=== PATIENT | male | born 1950 | race Caucasian/White ===

== ENCOUNTER → 2022-01-28 17:40 | Outpatient (CLI) | payer MEDICARE, SELFPAY ==
--- NOTE | 2022-01-28 17:45 | DI.MRI.S_ITS ---
PROCEDURE: MR PELIS WO/W CON INDICATIONS: Elevated PSA/BPH with LUTS TECHNIQUE: Coronal HASTE, axial T1 FSE with fat saturation, 3-plane nonbreath-hold T2 FSE. After the administration of contrast, dynamic axial, delayed axial and coronal VIBE or 2-D FLASH with fat saturation through the pelvis. Optional diffusion weighted imaging and ADC may be performed. COMPARISON: None. FINDINGS: Image quality: Diffusion weighted and dynamic contrast enhanced images are diagnostic. Prostate: Gland size is 5.4 x 3.4 x 3.5 cm; ellipsoid gland volume is 33 mL. Mild benign prostatic hyperplasia within central gland. Prostate capsule is intact. Neurovascular bundles and seminal vesicles are free of tumor. Lesion size(s): Lesion 1: 1.3 x 1.0 cm in axial plane. Lesion 2: 0.6 x 0.4 cm in axial plane. Lesion location(s) (sector): Lesion 1: Left apex posterior medial peripheral zone Lesion 2: Left mid-prostate posterior lateral peripheral zone Lesion description: Lesion 1: Oval mild to moderate [id number] with partially circumscribed and indistinct margins. Prostate capsule is intact. Lesion 2: Round moderately T2 W-hypointense with indistinct margins T2 weighted imaging (T2WI) morphology score: Lesion 1: 4 Lesion 2: 3 Diffusion weighted imaging (DWI) morphology score: Lesion 1: Likely category 3-4, although susceptibility artifact related to air in the rectum makes diffusion-weighted imaging unreliable. BI-RADS designation will be based on T2-weighted imaging score. Lesion 2: Obscured by artifact Dynamic contrast enhancement (DCE): Lesion 1: present Lesion 2: present Lesion PI-RADS score: Lesion 1: PI-RADS 4 Lesion 2: PI-RADS 4 Genitourinary system: Bladder wall thickness is normal. Distal ureters are non distended. Bowel and peritoneum: No pathologic free pelvic fluid. Inferior colon and small bowel loops are normal in caliber. Nodes and vessels: No pelvic or inguinal adenopathy by size criteria. Iliac vessels are normal in caliber. Soft tissues: No inguinal hernias. Diffusely hypointense appearance of the left testicle on coronal T1 post-contrast images may be secondary to a testicular prosthesis. Bones: Marrow demonstrates normal overall signal, without lesions to suggest metastases. Mild bilateral proximal hamstring tendinosis. Degenerative changes are seen in the included lumbar spine. IMPRESSION: 1. Small PI-RADS 4 lesions are seen in the left apex posteromedial peripheral zone measuring 1.3 cm and in the left mid prostate posterolateral peripheral zone measuring 0.6 cm. Of note, diffusion-weighted images are obscured by artifact related to adjacent bowel gas, and assessment is based on the T2-weighted imaging appearance and dynamic contrast enhancement. 2. Mild benign prostatic hyperplasia. Dictated by: Agustin Kc M.D. on 01/29/2022 at 12:10 Approved by: Agustin Kc M.D. on 01/29/2022 at 13:01
== END ==
PROVIDERS: Referring Provider Specialist; Visit Provider Specialist
DX: N40.0 Benign prostatic hyperplasia without lower urinary tract symptoms (principal); R97.20 Elevated prostate specific antigen [PSA]
CPT/HCPCS: 72197; A9579

== ENCOUNTER → 2022-04-23 09:38 | Outpatient (CLI) | payer MEDICARE, SELFPAY ==
[2022-04-23 10:09] LABS: COVID19 -Nasal RAPID Negative (Negative)
== END ==
PROVIDERS: PCP Family Medicine; Visit Provider Urology
DX: Z20.822 Contact with and (suspected) exposure to COVID-19 (principal)
CPT/HCPCS: 87635

== ENCOUNTER 2022-04-26 06:29 | Inpatient (IN) | payer MEDICARE, SELFPAY ==
[2022-04-26] VITALS (14 sets, daily range): BP systolic 98–118; BP diastolic 61–73; PULSE 56–88; RESP 16–22; TEMP 35.8–37; O2SAT 94–99; BMI 26.6
--- NOTE | 2022-04-26 | PATH_ITS ---
[facility] Accession Number: [id number] . 01 Material submitted: . PART A: lymph node - RIGHT PELVIC LYMPH NODE PART B: lymph node - LEFT PELVIC LYMPH NODE PART C: prostate - PROSTATE . 01 Diagnosis: A. Lymph Nodes, Right Pelvix, Resection: Two lymph nodes negative for malignancy (0/2). . B. Lymph Nodes, Left Pelvic, Resection: Two lymph nodes negative for malignancy (0/2). . C. Prostate Gland, Radical Prostatectomy: Invasive adenocarcinoma, acinar type. - Histologic type: Acinar adenocarcinoma. - Histologic grade: Grade group 3 (Carla score of 4+3=7); percentage of pattern 4 is approximately 70%. - Intraductal carcinoma: Not identified. - Cribriform glands: Present. - Treatment effect: No known presurgical therapy. - Tumor quantitation: Estimated 10% of prostate involved by tumor. - Greatest dimension of dominant tumor nodule: 16 mm (posterior lobe). - Extraprostatic extension: Not identified. - Urinary bladder neck invasion: Not identified. - Seminal vesicle invasion: Not identified. - Lymphovascular invasion: Not identified. - Perineural invasion: Present. - Margin status: All margins negative for invasive carcinoma. - Pathologic stage (pTNM, AJCC 8th Edition): pT2 pN0. - Additional findings: High-grade prostatic intraepithelial neoplasia. [facility] 04/29/2022 1515 Local . 01 Electronically signed: . Steph Casiano MD, Pathologist NPI- [id number] . 01 Gross description: . A. Received in formalin, labeled with the patient's name and right pelvic lymph node, and consists of two yellow, lobular adipose tissue measuring 3.4 x 2.8 x 1.0 cm. Palpation reveals two stack lymph node candidates ranging from 2.9 cm to 1.0 cm in greatest dimension. Sections are submitted as follows: A1: Single intact lymph node candidate. A2: Single intact lymph node candidate. B. Received in formalin, labeled with the patient's name and left pelvic lymph node, and consists of a fragment of yellow, lobulated soft tissue measuring 5.6 x 2.0 x 0.7 cm. Palpation reveals two stack lymph node candidates ranging from 1.2 cm to 2.5 cm in greatest dimension. Sections are submitted as follows: B1: Single intact lymph node candidate intact. B2: Single intact lymph node candidate. C. Received in formalin, labeled with the patient's name and prostate, and consists of a 45 g intact prostate with bilateral seminal vesicles and vasa deferentia measuring 5.8 cm SI, 4.5 cm ML, 4.0 cm AP. The specimen is inked as follows: Right anterior blue, left anterior green, posterior black. The specimen is serially sectioned from apex to base into seven slices to reveal a pale, firm, ill defined area located santos-centrally measuring 2.0 x 2.0 x 1.7 cm. The specimen is submitted as follows: C1: Perpendicular right apex. C2: Perpendicular left apex. C3-C4: Right base margin. C5: Left base margin. C6: Right vas deferens and seminal vesicle. C7: Left vas deferens and seminal vesicle. C8-C9: Slice 2, composite. C10-C13: Slice 3, composite. C14-C17: Slice 4, composite. C18-C21: Slice 5, composite. C22-C25: Slice 6, composite. ([id number]) /[facility] 04/27/2022 [facility] Local . 01 Pathologist provided ICD-10: C61 . 01 CPT . 298639, [id number], [id number] Specimen Comment: A courtesy copy of this report has been sent to [phone] Performed at: 01 [facility] [address] [place] [address], [place], [place] [id number] MD Antonio Beebe MD Phone: [phone]
[2022-04-26] MEDS: ACETAMINOPHEN IV 1,000 MG/100 ML VIAL 400 MG IV (07:18)
[2022-04-26] MEDS: LACTATED RINGERS 1,000 ML 42 ML IV ×3 (07:19→11:01)
--- NOTE | 2022-04-26 07:32 | PM.PREOP ---
Pre-operative Note COVID-19 Criteria for continued procedure: Expected advancement of disease process, Possibility delay results in more complex future surgery or treatment, Deterioration of the patient's condition or overall health, Delay expected to result in less-positive ultimate med/surg outcome and Non-surgical alternatives not available or appropriate per current SOC Interval Note History & Physical reviewed/Exam performed by Physician: Yes Changes to H&P: No
--- NOTE | 2022-04-26 07:51 | PM.PREOP ---
Pre-operative Note COVID-19 Criteria for continued procedure: Expected advancement of disease process, Possibility delay results in more complex future surgery or treatment, Delay expected to result in less-positive ultimate med/surg outcome and Non-surgical alternatives not available or appropriate per current SOC Interval Note History & Physical reviewed/Exam performed by Physician: Yes Changes to H&P: Yes H&P completed within 30 days and has changed as indicated here:: In the interval the patient has elected to proceed with radical retropubic prostatectomy and bilateral pelvic lymphadenectomy.
[2022-04-26] MEDS: CIPROFLOXACIN 400 MG/200 ML PIGGYBACK 200 MG IV (09:27)
--- NOTE | 2022-04-26 10:05 | SUR.OPER ---
Supine on padded OR bed, head on pillow, arms secured on padded arm boards at <90 degrees abduction, folded gel pads placed under bilateral wrists/lower forearm to support wrist/hands, legs uncrossed, safety belt at thigh, tape over blanket over lower legs. Gel pad under bilateral heels. Break of table at iliac crest for intra-op positioning.
[2022-04-26 10:22] LABS: Appearance Urine UA CLEAR; Bilirubin Urine UA NEGATIVE (NEGATIVE); Color Urine UA YELLOW; Glucose Urine UA NEGATIVE (Negative); Ketones Urine UA NEGATIVE (NEGATIVE); Leukocyte Esterase Urine UA NEGATIVE (NEGATIVE); Nitrite Urine UA NEGATIVE (Negative); Occult Blood Urine UA NEGATIVE (Negative); Protein Urine UA NEGATIVE (Negative); Specific Gravity Urine UA 1.025 (1.000-1.035); Urobilinogen Urine UA 0.2 E.U./dL (0.2); pH Urine UA 6.5 (4.5-8.0)
[2022-04-26 10:28] LABS: Bacteria Urine None Seen; Culture Indicated Urine Cult Not Indicated; RBC Urine 0-1/HPF (0-5/HPF); Squamous Epithelial Cell Urine None Seen (0-5/HPF); WBC Urine 0-1/HPF (0-5/HPF)
[2022-04-26] MEDS: BUPIVACAINE LIPOSOME 266 MG/20 ML VIAL INJ (11:37)
--- NOTE | 2022-04-26 12:15 | P.OP_ITS ---
Operative Date/Time/Diagnoses Date of procedure: 04/26/22 Time of procedure: 11:50 Pre-op diagnosis: Prostate cancer Post-op diagnosis: same Procedure & Clinicians Procedure: 1. Radical retropubic prostatectomy and bilateral pelvic lymphadenectomy. Same procedure as scheduled: Yes Indications: 1. Prostate cancer. 2. Family history of prostate cancer. Surgeon: Guy Hernandez Starcher And Tenter Range Feeder: Winter Flowers Click Yes if Unassisted: No Anesthesia Type: General, Spinal (Duramorph) and Local (1.33% Exparel) Operative Notes Findings: 1. Normal midline lower abdominal wall tissue planes. Periprostatic and perirectal tissues are unremarkable. Renate packets were unremarkable bilaterally. Closure Type: primary Specimen(s): other (1. Prostate with attached seminal vesicles. 2. Pelvic lymph nodes.) Applied: catheter ([address] Bueno catheter) and drain(s) (15 Qatari William drain.) Estimated Blood Loss (mL): 200 Blood products transfused: none Procedure in detail: The patient was positioned supine was administered general anesthesia following successful placement of Duramorph spinal anesthetic. The abdomen, genitalia, and groin were then prepped and draped in sterile fashion. A 20 Qatari Bueno catheter was inserted, the balloon inflated 20 cc, is placed to gravity drainage. A midline infraumbilical incision was then made just above the pubic symphysis. Division of the subcutaneous, muscular, fascial layers was undertaken using combination of blunt, sharp, and cautery technique. The pelvic retroperitoneum was then entered. The anterior and lateral pelvic sidewalls were then carefully exposed using blunt technique. Bilateral pelvic lymphadenectomy was then conducted on both sides using the same steps and maneuvers as follows: The thin and tissue overlying the external iliac vein was divided along its length using blunt and cautery technique. External iliac vein was then carefully isolated from the renate packet was reflected superiorly and laterally. The obturator nerve was observed and preserved in both cases. Using blunt and cautery technique each the right, and the left, renate packets were carefully dissected from the lateral pelvic sidewall external and pain and the obturator nerve and vessels. Each was labeled as to the site of their procurement submitted to pathology for routine gross and microscopic examination. The endopelvic fascia on either side the prostate was then carefully divided and fibers of the external sphincter complex were carefully deflected inferiorly and posteriorly. The puboprostatic ligaments were identified bilaterally. They were then divided using the power seal. The dorsal venous complex was then carefully isolated and also divided using the power seal. The anterior and lateral aspects of the urethra distal to the prostatic apex were then carefully identified and isolated with meticulous blunt technique. The prostatic fascia was divided longitudinally bilaterally from base to apex. Gentle pressure with a sponge stick was utilized to mobilize the divided fascia posteriorly toward the rectum and vascular pedicle. Next, the exposure urethra was further isolated and elevated off the rectal wall it was then divided sharply distal to the prostatic apex. The Bueno catheter was then brought into the operative field in usual fashion. Gentle retraction allowed division of the rectal urethralis musculature. A plane was then gently developed between the anterior rectal wall and posterior prostatic fascia. The posterior lateral pedicles of were then carefully isolated and divided using the power seal. Now with the prostate apex and posterior aspect Bueno elevated retracted superiorly the appropriate plane was developed at the base of each seminal vesicle. Each seminal vesicle was then meticulously dissected from its fossa using blunt and cautery technique with the power seal. The and bill of the vas were then identified bilaterally and isolated using blunt technique. Large plastic heme lock clamps were then applied proximally and distally and the structures were divided sharply. Now the smooth muscle of the interface of bladder neck and prostate base were carefully isolated and divided using blunt and cautery technique. The bladder neck was then incised sharply circumferentially and the prostate with attached seminal vesicles was then submitted to pathology for routine gross and microscopic examination. A julien bladder neck was then created using interrupted and imbricated 4-0 Monocryl circumferentially. Now the Fallon sound was passed the penile urethra and the tip was expose at the urethral stump. Interrupted 2-0 Monocryl suture were then placed at the 2, 4, 6, 8, and 10 o'clock positions from out side to inside. The same sutures were then brought through their corresponding positions in the neobladder neck under direct visualization. An 18 Qatari silicone catheter was then requested in this was then passed of lower urinary track and then was advanced under direct visualization with the tip within the bladder proper. The balloon was then inflated to 15 cc. Gentle traction was then applied to the catheter thus putting the urethral stump in neobladder neck in a juxtaposed position. Each suture was then tied down individually, thus completing the vesicle urethral anastomosis. The catheter was irrigated clear placed to gravity drainage. A 15 Qatari William drain was then positioned in the space of Retzius and brought out through a separate stab wound to the right of the midline incision. The drain was secured in place with 2-0 silk using a Selvin sandal technique. The midline fascia was closed with 0 PDS beginning at each the inferior, and the superior apex, then running each to 1 another at approximately the midpoint where they were tied to 1 another. This subcutaneous layer was then reapproximated running 2-0 Vicryl. The skin was reapproximated with a running subcuticular 4-0 Monocryl. Telfa was then tailored to fit just over the incision line and the drain site. Transparent Op site was then applied over both of these for a bio occlusive final dressing. The William drain was connected to bulb self suction. The patient was then awakened, transferred to [facility], and transported recovery room in stable condition. Complications: none Post-operative Condition: stable Disposition: Acute Care Plan for aftercare: Admit to acute care
[2022-04-26] MEDS: OXYCODONE IR 5 MG TABLET PO (12:42)
--- NOTE | 2022-04-26 12:50 | SUR.PHASEI ---
Pt A&Ox4, reports pain as tolerable, dressing C/D/I, VSS, and ready to transfer to room. Report given to receiving RN using SBAR with time allowed for questions. Pt transferred to room 216 with all personal belongings.
[2022-04-26] MEDS: LACTATED RINGERS 1,000 ML 125 ML IV ×2 (13:49→21:17)
[2022-04-26] MEDS: PANTOPRAZOLE DR 40 MG TABLET PO (15:14)
[2022-04-26] MEDS: METOCLOPRAMIDE 10 MG/2 ML INJ IV (15:15)
[2022-04-27 03:29] VITALS: BP 104/65; PULSE 78; RESP 16; TEMP 37
[2022-04-27] MEDS: LACTATED RINGERS 1,000 ML 125 ML IV (04:38)
--- NOTE | 2022-04-27 07:38 | PM.PN.1 ---
Subjective Subjective Date Patient Seen: 04/27/22 Time Patient Seen: 07:10 Interval history: Patient is postoperative day 1 status post radical retropubic prostatectomy and bilateral pelvic lymphadenectomy. He denies pain, nausea, or vomiting. He is passing gas and tolerating p.o. fluids. Exam Vital Signs (past 8 hours): - 04/26/22 23:51 04/27/22 03:29 Temperature 98.0 F 98.6 F Pulse Rate 69 78 Respiratory Rate 18 16 Blood Pressure 112/73 104/65 Pulse Oximetry 99 Oxygen Flow Rate 0 97 Oxygen Delivery Method Room Air Oxygen Flow Rate 97 Narrative Exam Narrative: He is sitting upright in bedside chair and in no distress. Chest-equal and unlabored expansion bilaterally. Heart-normal sinus rhythm. Abdomen-nondistended. Bowel tones are normal. Dressing and DOMINIK drain are intact. Genitalia-indwelling Bueno with nearly clear outflow the. Minimally pink tinged without clots. Objective Labs Labs: Laboratory Results - last 24 hr 04/26/22 09:43 Urine Color Yellow Urine Appearance Clear Urine pH 6.5 Ur Specific [place] 1.025 Urine Protein Negative Urine Glucose (UA) Negative Urine Ketones Negative Urine Occult Blood Negative Urine Nitrate Negative Urine Bilirubin Negative Urine Urobilinogen 0.2 Ur Leukocyte Esterase Negative Urine RBC 0-1/hpf Urine WBC 0-1/hpf Ur Squamous Epith Cells None seen Urine Bacteria None seen Ur Culture Indicated? Cult not indicated PFSH Medical History BPH loc w/o ur obs/LUTS Elevated PSA Elevated PSA Family history of prostate cancer in father Family history of prostate cancer in father Prostate cancer Surgical History History of back surgery Vasectomy status Social History household members: spouse Smoking Status: Never smoker alcohol intake: current Assessment & Plan Assessment & Plan narrative: Assessment: 1. Stable postoperative day 1 status post radical retropubic prostatectomy and bilateral pelvic lymphadenectomy. 2. Pathology pending. Plan: 1. Increase diet and activity. 2. Follow-up on pathology when final. Time Spent With Patient Critical Care time: I spent a total of [] minutes of critical care time on this patient's care today; this time is exclusive of procedural time. Quality VTE Deep Vein Thrombosis/Pulmonary Embolism Present on Admission: No
[2022-04-27 07:56] VITALS: BP 104/61; PULSE 60; RESP 17; TEMP 36.3; O2SAT 98
[2022-04-27] MEDS: CHOLECALCIFEROL (VITAMIN D3) 1,000 UNIT TABLET 1000 UNIT PO (09:18)
[2022-04-27] MEDS: ENOXAPARIN 40 MG/0.4 ML SYRINGE SUBCUT (09:18)
[2022-04-27] MEDS: ACETAMINOPHEN 325 MG TABLET 650 MG PO ×2 (09:18→21:30)
[2022-04-27 11:00] VITALS: BP 122/53; PULSE 66; RESP 17; TEMP 36.3; O2SAT 98
[2022-04-27 15:00] VITALS: BP 131/82; PULSE 66; RESP 17; TEMP 36.2; O2SAT 100
--- NOTE | 2022-04-27 15:41 | CM.DANOTE ---
DCP/Assessment: Reviewed chart. Patient is a 71yr old male admitted to [facility] for elective urology procedure with Dr. Hernandez. PCP is Crow Shankar. Primary payor is 1)[employer]. Met with patient this afternoon explained CM/SW role. Patient reports that he hopes to d/c home tomorrow 8-10. Patient is completely I in all ADL's and does not anticipate any d/c planning needs. Notified patient that CM team would continue to follow if needs were to arise. P: Home with spouse when medically stable. [facility] Discharge Planning/Care Management CM Discharge Assessment Start: 04/27/22 15:39 Freq: Status: Active Protocol: Document 04/27/22 15:39 KJS (Rec: 04/27/22 15:41 KJS [id number]) Discharge Planning Assessment Assigned Gluer Machine Operator JOSE Sue Contact Information Zaida Nate (spouse) ph# [phone] Advance Directives? No History Provided By Patient,Medical Record Prior Living Arrangements House Household Members spouse Type of transporation used prior to Drives own vehicle admit Independent with ADL's Yes Is patient alert and oriented? Yes Caregiver for Another No Barriers to Discharge No Discharge Plan Home Transportation Arrangement Family to provide transport. Referrals Initiated Other Additional Comment No d/c needs identified at time of visit. Whiteboard Updated in Patient Room with Yes name and ext. # of Gluer Machine Operator Review Status In Process Next Review Type Continued Stay Review Discharge Planning/Care Management CM Discharge Assessment Start: 04/27/22 15:39 Freq: Status: Active Protocol: Document 04/27/22 15:39 KJS (Rec: 04/27/22 15:41 KJS [id number]) Discharge Planning Assessment Assigned Gluer Machine Operator JOSE Sue Contact Information Zaida Sullivan (spouse) ph# [phone] Advance Directives? No History Provided By Patient,Medical Record Prior Living Arrangements House Household Members spouse Type of transporation used prior to Drives own vehicle admit Independent with ADL's Yes Is patient alert and oriented? Yes Caregiver for Another No Barriers to Discharge No Discharge Plan Home Transportation Arrangement Family to provide transport. Referrals Initiated Other Additional Comment No d/c needs identified at time of visit. Whiteboard Updated in Patient Room with Yes name and ext. # of Gluer Machine Operator Review Status In Process Next Review Type Continued Stay Review
[2022-04-27] MEDS: SODIUM CHLORIDE 0.9% FLUSH 10 ML IV (20:07)
[2022-04-27 20:12] VITALS: BP 118/75; PULSE 68; RESP 20; TEMP 37.3; O2SAT 97
--- NOTE | 2022-04-27 22:37 | PC.NURSE ---
Patient is alert and oriented. Breath sounds CTA with RA sat of 97%. HRR. Denies nausea. BT present and is passing flatus. Tender to incisional area. Indwelling catheter is patent; urine is clear, ranjith. Plan is to DC with catheter. Is able to turn himself in bed. Reportedly out of bed with SBA and walker. Does report some weakness in left LE. Abdominal dressing is CDI. DOMINIK intact and compressed with serosanguinous drainage. Refusing SCD's so reminded to ankle wave. Complained of 4/10 abdominal pain earlier and was medicated with Tylenol and pain down to 2/10 on reassessment. Fall risk score is moderate and bed alarm is activated.
[2022-04-28] VITALS: BP 139/79; PULSE 66; RESP 18; TEMP 36.2; O2SAT 95
[2022-04-28 07:50] VITALS: BP 140/78; PULSE 57; RESP 16; TEMP 36.4; O2SAT 97
[2022-04-28] MEDS: CHOLECALCIFEROL (VITAMIN D3) 1,000 UNIT TABLET 1000 UNIT PO (08:13)
[2022-04-28] MEDS: ACETAMINOPHEN 325 MG TABLET 650 MG PO (08:13)
[2022-04-28] MEDS: SODIUM CHLORIDE 0.9% FLUSH 10 ML IV (08:14)
[2022-04-28] MEDS: ENOXAPARIN 40 MG/0.4 ML SYRINGE SUBCUT (08:14)
--- NOTE | 2022-04-28 13:47 | PM.DS.1 ---
History of Present Illness History of Present Illness Date Patient Seen: 04/28/22 Time Patient Seen: 11:45 Date of Onset of Symptoms: 03/02/22 Chief complaint: INPT Narrative: Dixon is a 71-year-old male admitted on 04/26/2022 with diagnosis of GROUP 3, pT1c adenocarcinoma the prostate and positive family history for prostate cancer. He underwent uncomplicated radical retropubic prostatectomy and bilateral pelvic lymphadenectomy under general and Duramorph spinal the same day. Postoperative clinical course was unremarkable. He has no new complaints or concerns today. He is tolerating a general diet. He has evidenced return of bowel function activity. Ambulating without assistance. Pain is easily controlled with Tylenol. Discharge Providers Provider Date of admission: 04/26/22 06:29 Discharge Date: 04/28/22 Primary care physician: Crow Shankar MD Discharge provider: Guy Hernandez MD Summary Hospital Course Discharge Diagnosis: 1. Adenocarcinoma the prostate. 2. Family history of prostate cancer. Hospital Course: The patient was admitted on the morning of 04/26/2022 and underwent uncomplicated radical retropubic prostatectomy and bilateral pelvic lymphadenectomy under general and Duramorph spinal anesthesia. His postoperative clinical course was entirely unremarkable in that he tolerated general diet, was able to transfer and ambulate independently, and had return of bowel function by the 1st postoperative morning. On the morning of 04/28/2022 the patient is stable for discharge. Pathology is pending at discharge. Status at Discharge Cognitive/behavioral status at discharge: oriented Functional status at discharge: independent ambulation Overall status at discharge: patient is back to baseline Exam Vital Signs (past 8 hours): - 04/28/22 07:50 Temperature 97.6 F Pulse Rate 57 L Respiratory Rate 16 Blood Pressure 140/78 Pulse Oximetry 97 Oxygen Flow Rate 0 Oxygen Delivery Method Room Air Oxygen Flow Rate 0 Narrative Exam Narrative: He is sitting upright and resting comfortably in bed and in no distress. Head/neck-sclera clear pupils are round equal bilaterally. No JVD. Chest-equal nonlabored expansion bilaterally. Heart-normal sinus rhythm. Abdomen-incision intact drain site is clear. Genitalia-indwelling Bueno catheter with very light pink tinged outflow and without clot. Extremities-no edema, pallor, or cyanosis. [facility] Medical History BPH loc w/o ur obs/LUTS Elevated PSA Elevated PSA Family history of prostate cancer in father Family history of prostate cancer in father Prostate cancer Surgical History History of back surgery Vasectomy status Social History household members: spouse Smoking Status: Never smoker alcohol intake: current Discharge Assessment & Plan Assessment and Plan Assessment: 1. Stable post operative day 2 status post radical retropubic prostatectomy and bilateral pelvic lymphadenectomy. 2. Pathology pending. Plan of Treatment: 1. Discharge home today with indwelling Bueno catheter to gravity drainage. 2. Catheter care and use training per nursing as ordered. 3. Follow-up on pathology as outpatient when finalized. Discharge Plan Discharge Plan Patient Disposition: Home Provider Discharge Comment: Please contact the urology clinic to schedule postop follow-up. Discharge orders & Medications Prescriptions: New enoxaparin [Lovenox] 40 mg/0.4 mL Syringe 40 mg SUBCUT DAILY Qty: 30 0RF oxycodone 5 mg Tablet 5 mg PO Q4H PRN (Reason: Pain, Moderate (4-6)) Qty: 15 0RF ciprofloxacin HCl 250 mg tablet 250 mg PO Q12H Qty: 6 0RF Rx Instructions: Begin the morning of 05/09/2022 as directed. Continued cholecalciferol (vitamin D3) 10 mcg (400 unit) capsule 25 mcg PO DAILY esomeprazole magnesium 40 mg capsule,delayed release(DR/EC) 500 mg PO DAILY PRN (Reason: Heartburn) omega-3 fatty acids [Fish Oil Concentrate] 1,000 mg capsule 2,800 mg PO DAILY vitamin B complex [B Complex-Vitamin B12] Tablet 1 tab PO DAILY Follow up/Referrals: Crow Shankar MD [Primary Care Provider] - Diet/Activity/Treatments Diet: Diet as Tolerated Activity: No driving x2 weeks. No lifting greater than 15 lb x 4 weeks. Catheter: 2-way Bueno Skin/Wound/Dressing Care Skin care: May shower daily. No bathing, swimming, or hot tub x2 weeks. Report to your healthcare provider any signs of infection, such as:: chills, fever, night sweats, increased pain, unusual drainage and unusual redness Other wound treatment: Leave incision open to air. Blot dry with clean Tylenol after showering. Visit Report/Discharge Packet Instructions: DI for Heart Failure, DI for Prescription Opioid Use Stand Alone Forms: Surgery Discharge Discharge Data Primary Care Provider: Crow Shankar VTE Deep Vein Thrombosis/Pulmonary Embolism Present on Admission: No
== END 2022-04-28 14:51 | disposition home or self-care (01) | DRG 708 ==
PROVIDERS: Admitting Provider Specialist; PCP Family Medicine; Referring Provider Specialist; Visit Provider Specialist
PROC: 0VT00ZZ Resection of Prostate, Open Approach (ICD-10-PCS; principal; 2022-04-26 07:45)
DX: C61 Malignant neoplasm of prostate (principal); N40.0 Benign prostatic hyperplasia without lower urinary tract symptoms; Z80.42 Family history of malignant neoplasm of prostate; Z20.822 Contact with and (suspected) exposure to COVID-19
CPT/HCPCS: 55845; 81001; 82962; 87635; C9803; C9290; J0131; J0744; J1650; J2250; J2274; J2704; J2765; J3010

== ENCOUNTER 2022-06-01 11:15 | Outpatient (RCR) | payer MEDICARE, SELFPAY ==
--- NOTE | 2022-04-15 21:30 | PT.OIE ---
Current Diagnoses Malignant neoplasm of prostate (04/15/22) Benign prostatic hyperplasia without lower urinary tract symptoms (04/15/22) Elevated prostate specific antigen [PSA] (04/15/22) Past Medical History (Last Updated 03/30/22 @ 17:20 by Guy Hernandez MD) BPH loc w/o ur obs/LUTS Elevated PSA Elevated PSA Family history of prostate cancer in father Family history of prostate cancer in father Prostate cancer Past Surgical History (Last Reviewed 03/30/22 @ 17:19 by Guy Hernandez MD) History of back surgery Vasectomy status Visit Care Team Role Provider Type Crow Shankar MD Primary Care Provider Non-Staff Specialty: Family Practice Address: [address] [place] [address], [id number] Email: Family Provider Specialty: Address: Phone: Fax: Email: Guy Hernandez MD Attending Provider Physician Referring Provider Specialty: Urology Address: [address] [place] [address], [id number] Email: Physical Therapy Initial Evaluation PT-OP-A Visit Information Start: 04/14/22 10:44 Freq: Status: Active Protocol: Document 04/15/22 07:27 AMB (Rec: 04/15/22 07:58 AMB [id number]) Out-Patient Physical Therapy Visit Information Visit Information Visit Type Initial Evaluation Visit Start Time 07:30 Visit Stop Time 08:15 Total Visit Minutes 45 Visit Number 1 PT-OP-B Current Condition Start: 04/14/22 10:44 Freq: Status: Active Protocol: Document 04/15/22 07:27 AMB (Rec: 04/15/22 07:58 AMB [id number]) Current Condition History of Current Condition Onset Date 04/26/22 Current Complaints upcoming prostate surgery History of Current Condition Having surgery 04/26/22. PT-OP-C Subjective Start: 04/14/22 10:44 Freq: Status: Active Protocol: Document 04/15/22 07:30 AMB (Rec: 04/15/22 12:46 AMB [id number]) Patient Questionnaires Pelvic Pain and Urgency/Frequency Patient Symptom Scale Pelvic Pain Score 1 OP-PT Pain Assessment Comments Pain Comments low back pain history PT-OP-I Pelvic Floor Start: 04/14/22 10:44 Freq: Status: Active Protocol: Document 04/15/22 07:59 AMB (Rec: 04/15/22 08:14 AMB [id number]) Pelvic Floor Assessment SEMG (uV) Baseline 1.5 Quick Contraction 49.7 10 Second Contraction 26.7 Recruitment Pattern Good Relaxation Good Holding Fair Stability of Hold Fair SEMG Stability of Rest Good PT-OP-T Assessment and Plan Start: 04/14/22 10:44 Freq: Status: Active Protocol: Document 04/15/22 07:30 AMB (Rec: 04/15/22 13:01 AMB [id number]) Physical Therapy Assessment Rehab Potential Rehabilitation Potential Good Evaluation Complexity Number of Personal Factors/Comorbidities 1-2 Number of Body Systems Impaired 1-2 Impairments Impairments Strength Goals Strength Short Term Goal (STG) Dixon will contract his pelvic floor muscles for 10 seconds in standing. STG Duration 5 weeks Loan Services Professional Goal (LTG) Dixon will be independent with a HEP to strengthen his pelvic floor. LTG Duration 10 weeks Continence Short Term Goal (STG) Dixon will move from sit to stand without leaking urine. STG Duration 5 weeks [facility] Goal (LTG) Dixon will walk through the grocery store without leaking urine. LTG Duration 10 weeks Assessment Summary Assessment Dixon presents to PT with upcoming prostate surgery scheduled. He is not currently having any urinary symptoms, and denies any and all incontinence. He was instructed in pelvic floor strengthening, and did show good engagement of pelvic floor muscles with sEMG biofeedback. He will be re- evaluated after his upcoming surgery. Did discuss RAMOS after surgery and the importance of strengthening now before surgery. Physical Therapy Plan Frequency and Duration Frequency of Treatment 1x/Week Duration of Treatment 12 weeks Plan of Care Start Date 04/15/22 Plan of Care End Date 07/08/22 Therapeutic Interventions Therapeutic Interventions Home Exercise Program,Manual Therapy,Neuromuscular Re- education,Therapeutic Activities,Therapeutic Exercises Modalities Biofeedback Next Visit Focus/Plan Next Note Type Re-Evaluation
--- NOTE | 2022-04-15 21:31 | PT.OPPOC ---
Physical, Occupational & Speech Therapy At [facility] Current Diagnoses Malignant neoplasm of prostate (04/15/22) Benign prostatic hyperplasia without lower urinary tract symptoms (04/15/22) Elevated prostate specific antigen [PSA] (04/15/22) Visit Care Team Role Provider Type Crow Shankar MD Primary Care Provider Non-Staff Specialty: Family Practice Address: [address] [place] [address], [id number] Email: Family Provider Specialty: Address: Phone: Fax: Email: Guy Hernandez MD Attending Provider Physician Referring Provider Specialty: Urology Address: [address] [place] [address], [phone] Email: Plan Of Care PT-OP-T Assessment and Plan Start: 04/14/22 10:44 Freq: Status: Active Protocol: Document 04/15/22 07:30 AMB (Rec: 04/15/22 13:01 AMB [id number]) Physical Therapy Assessment Rehab Potential Rehabilitation Potential Good Evaluation Complexity Number of Personal Factors/Comorbidities 1-2 Number of Body Systems Impaired 1-2 Impairments Impairments Strength Goals Strength Short Term Goal (STG) Dixon will contract his pelvic floor muscles for 10 seconds in standing. STG Duration 5 weeks Loader Technician Goal (LTG) Dixon will be independent with a HEP to strengthen his pelvic floor. LTG Duration 10 weeks Continence Short Term Goal (STG) Dixon will move from sit to stand without leaking urine. STG Duration 5 weeks [facility] Goal (LTG) Dixon will walk through the grocery store without leaking urine. LTG Duration 10 weeks Assessment Summary Assessment Dixon presents to PT with upcoming prostate surgery scheduled. He is not currently having any urinary symptoms, and denies any and all incontinence. He was instructed in pelvic floor strengthening, and did show good engagement of pelvic floor muscles with sEMG biofeedback. He will be re- evaluated after his upcoming surgery. Did discuss RAMOS after surgery and the importance of strengthening now before surgery. Physical Therapy Plan Frequency and Duration Frequency of Treatment 1x/Week Duration of Treatment 12 weeks Plan of Care Start Date 04/15/22 Plan of Care End Date 07/08/22 Therapeutic Interventions Therapeutic Interventions Home Exercise Program,Manual Therapy,Neuromuscular Re- education,Therapeutic Activities,Therapeutic Exercises Modalities Biofeedback Next Visit Focus/Plan Next Note Type Re-Evaluation Plan of Care Dates Plan of Care Start Date 04/15/22 Plan of Care End Date 07/08/22 Electronically Signed by: Kate Wahl, PT 04/15/22 0924 If you are in agreement with this Plan of Care, please return a signed and dated copy. I have reviewed this Plan of Care and certify that the skilled therapy services above are required to meet the patient?s needs. Physician Signature Date Printed Name and Credentials Clinical Instructor Signature Printed Name and Credentials
--- NOTE | 2022-06-01 12:20 | PT.OTN ---
Current Diagnoses Malignant neoplasm of prostate (06/01/22) Benign prostatic hyperplasia without lower urinary tract symptoms (06/01/22) Elevated prostate specific antigen [PSA] (06/01/22) Physical Therapy Treatment Note PT-OP-A Visit Information Start: 04/14/22 10:44 Freq: Status: Active Protocol: Document 06/01/22 11:24 [facility] (Rec: 06/01/22 11:52 [facility] [id number]) Out-Patient Physical Therapy Visit Information Visit Information Visit Type Re-Evaluation Visit Start Time 11:20 Visit Stop Time 12:00 Total Visit Minutes 40 Visit Number 2 PT-OP-B Current Condition Start: 04/14/22 10:44 Freq: Status: Active Protocol: Document 04/15/22 07:27 AMB (Rec: 04/15/22 07:58 AMB [id number]) Current Condition History of Current Condition Onset Date 04/26/22 Current Complaints upcoming prostate surgery History of Current Condition Having surgery 04/26/22. PT-OP-C Subjective Start: 04/14/22 10:44 Freq: Status: Active Protocol: Document 06/01/22 11:24 [facility] (Rec: 06/01/22 11:52 [facility] [id number]) OP-PT Subjective Patient Comments Patient Comments 04/26/22 prostatectomy, he has noted left leg weakness and pain in the left hip he thinks from the spinal he had for surgery. The only issue he feels he has with his pelvic floor is controlling gas. He did have this problem prior to surgery. He is taking a probiotic and feels this is helping. He started this a month ago. He is wearing a pad in his underwear just in case but as soon as he feels a urge he is able to make it to the bathroom. He reports only occasional leakage. Patient Reported Progress Improving PT-OP-I Pelvic Floor Start: 04/14/22 10:44 Freq: Status: Active Protocol: Document 06/01/22 11:52 [facility] (Rec: 06/01/22 12:08 [facility] [id number]) Pelvic Floor Assessment SEMG (uV) Baseline 2.0 10 Second Contraction 38.4 Comments Pelvic Floor Comments average 38.4 uv max 134 uv resting tone 2.0 PT-OP-Q Treatments Start: 04/14/22 10:44 Freq: Status: Active Protocol: Document 06/01/22 11:24 [facility] (Rec: 06/01/22 11:52 [facility] [id number]) Therapeutic Exercises Supine Exercises pelvic floor quick flicks Reps/Minutes x 10 reps pelvic floorlongholds Reps/Minutes 10 seconds on 10 seconds off Comments pt able to maintain his endurance x 10 seconds with average of 38 uv PT-OP-T Assessment and Plan Start: 04/14/22 10:44 Freq: Status: Active Protocol: Document 06/01/22 11:20 [facility] (Rec: 06/01/22 12:20 [facility] [id number]) Physical Therapy Assessment Goals Strength Short Term Goal (STG) Dixon will contract his pelvic floor muscles for 10 seconds in standing. STG Duration 5 weeks Alf Goal (LTG) Dixon will be independent with a HEP to strengthen his pelvic floor. 06/01/22 GOAL MET LTG Duration 10 weeks Continence Short Term Goal (STG) Dixon will move from sit to stand without leaking urine. 06/01/22 GOAL met STG Duration 5 weeks Alf Goal (LTG) Dixon will walk through the grocery store without leaking urine. 06/01/22 GOAL MET LTG Duration 10 weeks Assessment Summary Assessment Dixon returns to PT s/p his prostatectomy. He is doing really well and for the most part is not experiencing any urinary incontinence symptoms. He has noted occasional leakage but only a few drops. He did report left sided leg weakness and some groin discomfort but notes this is improving with time. Per his surgical report and there was a B pelvic lymphadenectomy performed. We chatted about how lymph node removal can cause swelling and may be the cause of his symptoms. Dixon denies any c/o swelling or pressure and does feel like his symptoms are improving. He was advised that if experienced any additional symptoms to let Dr. Hernandez know as we do have a PT who specialized in lymphedema. At this point he is doing great with his pelvic floor and will continue to work on his exercises with a HEP. Dixon felt comfortable with this and agrees with continuing to work on his exercises at home. Physical Therapy Plan Discharge Physical Therapy Discharge Reasons Goals Met
== END 2022-06-25 12:38 | disposition home or self-care (01) ==
LOC: PHYS 11:15
PROVIDERS: PCP Family Medicine; Referring Provider Specialist; Visit Provider Specialist
DX: C61 Malignant neoplasm of prostate (principal); R97.20 Elevated prostate specific antigen [PSA]; N40.0 Benign prostatic hyperplasia without lower urinary tract symptoms
CPT/HCPCS: 97161; 97164